=== PATIENT | male | born 1955 | race Hispanic/Latino ===

== ENCOUNTER 2017-12-11 12:34 | Inpatient (IN) | payer OTHER ==
[2017-12-11] MEDS ORDERED: Sodium Chloride 0.9% 1,000 ML IV STA (12:59)
--- NOTE | 2017-12-11 13:00 | ED PDOC ---
HPI: General Adult Time Seen by Provider: 12/11/17 12:56 Chief Complaint (Nursing): Weakness/Neurological Deficit Chief Complaint (Provider): Weakness History Per: Patient History/Exam Limitations: no limitations Onset/Duration Of Symptoms: Days (1 week) Current Symptoms Are (Timing): Still Present Additional Complaint(s): Pt. with weakness all over. 3 days of bloody stool. Went to [facility]. Was told he may have an ulcer. He left as he was waiting for 17hrs without completion of treatment. Pt. has light-headedness. No abd pain, chest pain, headaches, numbness, tingles. No vomiting blood. Past Medical History Reviewed: Nursing Documentation, Vital Signs Vital Signs: Last Vital Signs Temp 97 F L 12/11/17 12:35 Pulse 76 12/11/17 12:35 Resp 16 12/11/17 12:35 BP 104/64 12/11/17 12:35 Pulse Ox 98 12/11/17 15:11 - Medical History PMH: HTN - Family History Family History: States: Unknown Family Hx - Allergies Allergies/Adverse Reactions: Allergies Allergy/AdvReac Type Severity Reaction Status Date / Time No Known Allergies Allergy Verified 12/11/17 12:35 Review of Systems ROS Statement: Except As Marked, All Systems Reviewed And Found Negative Constitutional: Positive for: Weakness Gastrointestinal: Positive for: Melena, Hematochezia Neurological: Positive for: Weakness, Dizziness Physical Exam - Reviewed Nursing Documentation Reviewed: Yes Vital Signs Reviewed: Yes - Physical Exam Appears: Positive for: Uncomfortable Head Exam: Positive for: ATRAUMATIC, NORMAL INSPECTION, NORMOCEPHALIC Skin: Positive for: Normal Color, Warm, DRY Eye Exam: Positive for: EOMI, Normal appearance, PERRL ENT: Positive for: Normal ENT Inspection Neck: Positive for: Normal, Painless ROM, Supple Cardiovascular/Chest: Positive for: Regular Rate, Rhythm Respiratory: Positive for: CNT, Normal Breath Sounds Gastrointestinal/Abdominal: Positive for: Normal Exam, Soft. Negative for: Tenderness Back: Positive for: Normal Inspection. Negative for: L CVA Tenderness, R CVA Tenderness Rectal: Positive for: Rectal Tone Is: (intact), Black Stool Extremity: Positive for: Normal ROM. 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 Negative for: Motor/Sensory Deficits, Aphasia, Facial Droop - Laboratory Results Result Diagrams: 12/11/17 13:22 12/11/17 13:22 Interpretation Of Abn Labs: 6.9 hg - ECG ECG: Positive for: Interpreted By Me, Viewed By Me ECG Rhythm: Positive for: Normal QRS, Normal ST Segment, Sinus Rhythm O2 Sat by Pulse Oximetry: 98 Pulse Ox Interpretation: Normal - Radiology X-Ray: Read By Radiologist X-Ray Interpretation: No Acute Disease - Progress ED Course And Treament: 1300: Stable. Continue fluids. 1453: Stable. AAOx3. Will need transfusion. Spoke with Dr. Rene. Will admit tele and give further orders when pt. reaches floor. GI and pt. PCP Dr. Ardon call back pending. 1509: Spoke with Dr. Cuello for Dr. Palomino. Will consult. Agrees with current care. 1515: Pt. pcp not calling back. Family aware. - Critical Care Total Time (In Min): 30 Documented Critical Care: Time excludes all time spent performint seperately billable procedures Disposition - Clinical Impression Clinical Impression: GI bleed - Patient ED Disposition Is Patient to be Admitted: Yes Counseled Patient/Family Regarding: Studies Performed, Diagnosis - Disposition Disposition Time: 14:00 Condition: FAIR - Pt Status Changed To: Hospital Disposition Of: Inpatient - Admit Certification Admit to Inpatient:: After my assessment, the patient will require hospitalization for at least two midnights. This is because of the severity of symptoms shown, intensity of services needed, and/or the medical risk in this patient being treated as an outpatient. - POA Present On Arrival: None
[2017-12-11 13:36] LABS: BASO # 0.1 K/uL (0.0-0.2); BASO % 0.6 % (0.0-2.0); EOS # 0.3 K/uL (0.0-0.7); EOS % 3.2 % (0.0-4.0); HEMOGLOBIN 6.9 g/dL (12.0-18.0); LYMPH # 1.8 K/uL (1.0-4.3); LYMPH % 17.6 % (20.0-40.0); MEAN CELL VOLUME 94.6 fl (80.0-94.0); MEAN CORPUSCULAR HEMOGLOBIN 34.1 pg (27.0-31.0); MEAN PLATELET VOLUME 9.4 fl (7.2-11.7); MONO # 0.9 K/uL (0.0-0.8); NEUT # 7.1 K/uL (1.8-7.0); NEUT % 69.6 % (50.0-75.0); NRBC % 0.1 % (0.0-0.0); RBC 2.04 Mil/uL (4.40-5.90); WHITE BLOOD COUNT 10.3 K/uL (4.8-10.8)
[2017-12-11 13:48] LABS: BLOOD UREA NITROGEN 16 mg/dl (9-20); GFR AFRICAN-AMERICAN > 60; GFR NON-AFRICAN AMERICAN > 60; PARTIAL THROMBOPLASTIN TIME 24.5 Seconds (25.6-37.1); PROTHROMBIN TIME 11.3 Seconds (9.8-13.1)
[2017-12-11 13:49] LABS: ALB/GLOB RATIO 1.2 (1.0-2.1); ALBUMIN 2.7 g/dL (3.5-5.0); ALT/SGPT 40 U/L (21-72); AST/SGOT 22 U/L (17-59); CALCIUM 8.1 mg/dL (8.4-10.2)
--- NOTE | 2017-12-11 14:01 | RAD ---
HISTORY: weakness COMPARISON: No prior. FINDINGS: LUNGS: No active pulmonary disease. PLEURA: No significant pleural effusion identified, no pneumothorax apparent. CARDIOVASCULAR: Normal. OSSEOUS STRUCTURES: No significant abnormalities. VISUALIZED UPPER ABDOMEN: Normal. OTHER FINDINGS: None. IMPRESSION: No active disease.
--- NOTE | 2017-12-11 14:18 | CT ---
PROCEDURE: CT HEAD WITHOUT CONTRAST. HISTORY: headache COMPARISON: None available. TECHNIQUE: Axial computed tomography images were obtained through the head/brain without intravenous contrast. Radiation dose: Total exam DLP = 788.55 mGy-cm. This CT exam was performed using one or more of the following dose reduction techniques: Automated exposure control, adjustment of the mA and/or kV according to patient size, and/or use of iterative reconstruction technique. FINDINGS: HEMORRHAGE: No intracranial hemorrhage. BRAIN: No mass effect or edema. No atrophy or chronic microvascular ischemic changes. VENTRICLES: Unremarkable. No hydrocephalus. CALVARIUM: Unremarkable. PARANASAL SINUSES: Mild chronic ethmoid sinusitis. MASTOID AIR CELLS: Unremarkable as visualized. No inflammatory changes. OTHER FINDINGS: None. IMPRESSION: No intracranial mass, hemorrhage or evidence of acute infarct. Mild chronic ethmoid sinusitis. Otherwise unremarkable examination.
[2017-12-11] MEDS: Pantoprazole 40 MG in Sodium Chloride 0.9% 100 ML IVPB SCH ×2 (15:00→23:46)
--- NOTE | 2017-12-11 17:36 | CARD ---
APPROVED REPORT EKG Measurement Heart [id number] <Conclusion> Normal sinus rhythm Minimal voltage criteria for LVH, may be normal variant Prolonged QT Abnormal ECG
[2017-12-11] MEDS: Dextrose 5%/0.9% NS 1,000 ML IV SCH (23:45)
[2017-12-12] MEDS: Pantoprazole 40 MG in Sodium Chloride 0.9% 100 ML IVPB SCH ×6 (05:19→22:32)
[2017-12-12 07:00] LABS: HEMOGLOBIN 7.7 g/dL (12.0-18.0); MEAN CELL VOLUME 93.9 fl (80.0-94.0); MEAN CORPUSCULAR HEMOGLOBIN 32.5 pg (27.0-31.0); MEAN CORPUSCULAR HGB CONC 34.6 g/dL (33.0-37.0); RBC 2.39 Mil/uL (4.40-5.90); WHITE BLOOD COUNT 7.5 K/uL (4.8-10.8)
[2017-12-12 07:18] LABS: BLOOD UREA NITROGEN 12 mg/dl (9-20); CALCIUM 7.8 mg/dL (8.4-10.2); GFR AFRICAN-AMERICAN > 60; GFR NON-AFRICAN AMERICAN > 60
--- NOTE | 2017-12-12 11:26 | CP.PCM.CON ---
<Jonn Cuello - Last Filed: 12/12/17 11:27> History of Present Illness - History of Present Illness History of Present Illness: PGY4 Initial GI Consult Kole Cuevas is a 62M w/ hx of HTN who presents to the Er with complaints of weakness and anemia. Pt states that he had been feeling weak for the last 3 days. He concurrently had bright red blood per rectum. He denied any abd pain. Denied any melena, hematemesis or coffee-ground emesis . Pt denies any previous hx of anemia. Denies any weightloss. He had a colonoscopy and endoscopy 4 years ago. He noted no significant finding. He initially went to [facility], but left AMA due to the long wait in the ER. He was started on PPI drip at [facility] ER and given 1 unit of PRBC, which his hgb responded appropriately. PMHx: HTN PSHx: Denies Social Hx: Denies any smoking or illicit drug use, only social drinker Family hx: reviewed, denies any hx of GI malignancy ENdo hx: see above Past Patient History - Past Medical History & Family History Past Medical History?: Yes - Past Social History Smoking Status: Current Some Days Smoker - CARDIAC Hx Cardiac Disorders: No - PULMONARY Hx Respiratory Disorders: No - NEUROLOGICAL Hx Neurological Disorder: No - HEENT Hx HEENT Problems: No - RENAL Hx Chronic Kidney Disease: No - ENDOCRINE/METABOLIC Hx Endocrine Disorders: No - HEMATOLOGICAL/ONCOLOGICAL Hx Blood Disorders: No - INTEGUMENTARY Hx Dermatological Problems: No - MUSCULOSKELETAL/RHEUMATOLOGICAL Hx Musculoskeletal Disorders: No - GASTROINTESTINAL Hx Gastrointestinal Disorders: No Hx Bowel Surgery: No Hx Clostridium Difficile: No Hx Colitis: No Hx Colostomy: No Hx Constipation: No Hx Crohn's Disease: No Hx Diarrhea: No Hx Diverticulitis: Yes Hx Esophageal Varices: No Hx Fatty Liver Disease: No Hx Gall Bladder Disease: No Hx Gastritis: No Hx Gastroesophageal Reflux: No Hx Hemorrhoids: No Hx Ileostomy: No Hx Irritable Bowel: No Hx Liver Failure: No Hx Nausea: No Hx Pancreatitis: No HX Swallowing Problems: No Hx Ulcer: No Hx Vomiting: No - GENITOURINARY/GYNECOLOGICAL Hx Genitourinary Disorders: No - PSYCHIATRIC Hx Psychophysiologic Disorder: No - SURGICAL HISTORY Hx Surgeries: No Hx Abdominal Aortic Aneurysm Repair: No Hx Amputation: No Hx Angiogram: No Hx Angioplasty: No Hx Appendectomy: No Hx Arteriovenous Shunt: No Hx Arthroscopy: No Hx Bile Duct Stent: No Hx Breast Biopsy: No Hx Cataract Extraction: No Hx Cardiac Catheterization: No Hx Carotid Endarterectomy: No Hx Section: No Hx Cholecystectomy: No Hx Coronary Artery Bypass Graft: No Hx Coronary Stent: No Hx Dilation and Curettage: No Hx Eye Surgery: No Hx Femoral-Popliteal Bypass Graft: No Hx Gastric Bypass Surgery: No Hx Herniorrhaphy: No Hx Hysterectomy: No Hx Joint Replacement: No Hx Kidney Transplant: No Hx Liver Transplant: No Hx Mastectomy: No Hx Musculoskeletal Surgery: No Hx Open Heart Surgery: No Hx Open Reduction Internal Fixation: No Hx Orthopedic Surgery: No Hx Parathyroidectomy: No Hx Penile Implant: No Hx Pulmonary Surgery: No Hx Splenectomy: No Hx Thyroidectomy: No Hx Tonsillectomy: No Hx Tubal Ligation: No Hx Valve Replacement: No Hx Vascular Surgery: No Hx Vascular Access Device: No - ANESTHESIA Hx Anesthesia: Yes Hx Anesthesia Reactions: No Hx Malignant Hyperthermia: No Has any member of the family had a problem w/ anesthesia?: No Meds Allergies/Adverse Reactions: Allergies Allergy/AdvReac Type Severity Reaction Status Date / Time No Known Allergies Allergy Verified 12/11/17 12:35 - Medications Medications: Current Medications Amlodipine Besylate (Norvasc) 10 mg PO DAILY [facility] Last Admin: 12/12/17 09:03 Dose: 10 mg Bisacodyl (Dulcolax) 5 mg PO ONCE ONE Stop: 12/12/17 13:01 Pantoprazole Sodium 40 mg/ (Sodium Chloride) 100 mls @ 20 mls/hr IVPB Q5H [facility] PRN Reason: 8 MG/HR Last Admin: 12/12/17 09:08 Dose: 20 mls/hr Dextrose/Sodium Chloride (Dextrose 5%/0.9% Ns 1000 Ml) 1,000 mls @ 80 mls/hr IV .[id number] [facility] Stop: 12/12/17 18:23 Last Admin: 12/11/17 23:45 Dose: 80 mls/hr Polyethylene Glycol/Electrolytes (Golytely) 4,000 ml PO ONCE ONE Stop: 12/12/17 13:01 Physical Exam - Constitutional Appears: Well, No Acute Distress - Head Exam Head Exam: ATRAUMATIC, NORMOCEPHALIC - Eye Exam Eye Exam: Normal appearance - ENT Exam ENT Exam: Mucous Membranes Moist, Normal Exam - Neck Exam Neck exam: Positive for: Normal Inspection - Respiratory Exam Respiratory Exam: Clear to Auscultation Bilateral, NORMAL BREATHING PATTERN. absent: Prolonged Expiratory Phase, Rales, Rhonchi, Wheezes, Respiratory Distress - Cardiovascular Exam Cardiovascular Exam: REGULAR RHYTHM, +S1, +S2 - GI/Abdominal Exam GI & Abdominal Exam: Normal Bowel Sounds, Soft. absent: Diminished Bowel Sounds , Firm, Guarding, Hernia, Organomegaly, Rebound, Rigid - Extremities Exam Extremities exam: Negative for: joint swelling, pedal edema - Neurological Exam Neurological exam: Alert, Oriented x3 - Psychiatric Exam Psychiatric exam: Normal Affect, Normal Mood - Skin Skin Exam: Dry, Intact, Normal Color, Warm Results - Vital Signs Recent Vital Signs: Last Vital Signs Temp 97.7 F 12/12/17 08:03 Pulse 73 12/12/17 09:03 Resp 16 12/12/17 08:03 BP 110/71 12/12/17 09:03 Pulse Ox 97 12/12/17 08:03 - Labs Result Diagrams: 12/12/17 05:45 12/12/17 05:45 Labs: Laboratory Results - last 24 hr 12/11/17 12/11/17 12/11/17 12:51 13:22 13:22 WBC RBC Hgb Hct MCV MCH MCHC RDW Plt Count MPV Neut % (Auto) Lymph % (Auto) [place] % (Auto) Eos % (Auto) Baso % (Auto) Neut # (Auto) Lymph # (Auto) [place] # (Auto) Eos # (Auto) Baso # (Auto) PT INR APTT Sodium 138 Potassium 3.4 L Chloride 105 Carbon Dioxide 23 Anion Gap 13 BUN 16 Creatinine 0.8 Est GFR ( Amer) > 60 Est GFR (Non-Af Amer) > 60 POC Glucose (mg/dL) 184 H Random Glucose 125 H Calcium 8.1 L Total Bilirubin 0.4 AST 22 ALT 40 Alkaline Phosphatase 42 Troponin I 0.0300 Total Protein 5.0 L Albumin 2.7 L Globulin 2.3 Albumin/Globulin Ratio 1.2 Stool Occult Blood Blood Type O POSITIVE Blood Type Confirm Antibody Screen Negative Crossmatch See Detail BBK History Checked No verified bt 12/11/17 12/11/17 12/11/17 13:22 13:22 14:12 WBC 10.3 RBC 2.04 L Hgb 6.9 L Hct 19.3 L MCV 94.6 H MCH 34.1 H MCHC 36.0 RDW 14.0 Plt Count 172 MPV 9.4 Neut % (Auto) 69.6 Lymph % (Auto) 17.6 L [place] % (Auto) 9.0 Eos % (Auto) 3.2 Baso % (Auto) 0.6 Neut # (Auto) 7.1 H Lymph # (Auto) 1.8 [place] # (Auto) 0.9 H Eos # (Auto) 0.3 Baso # (Auto) 0.1 PT 11.3 INR 1.0 APTT 24.5 L Sodium Potassium Chloride Carbon Dioxide Anion Gap BUN Creatinine Est GFR ( Amer) Est GFR (Non-Af Amer) POC Glucose (mg/dL) Random Glucose Calcium Total Bilirubin AST ALT Alkaline Phosphatase Troponin I Total Protein Albumin Globulin Albumin/Globulin Ratio Stool Occult Blood Positive H Blood Type Blood Type Confirm Antibody Screen Crossmatch BBK History Checked 12/11/17 12/12/17 12/12/17 14:17 05:45 05:45 WBC 7.5 RBC 2.39 L Hgb 7.7 L Hct 22.4 L MCV 93.9 MCH 32.5 H MCHC 34.6 RDW 15.0 H Plt Count 150 MPV Neut % (Auto) Lymph % (Auto) [place] % (Auto) Eos % (Auto) Baso % (Auto) Neut # (Auto) Lymph # (Auto) [place] # (Auto) Eos # (Auto) Baso # (Auto) PT INR APTT Sodium 141 Potassium 3.7 Chloride 107 Carbon Dioxide 26 Anion Gap 12 BUN 12 Creatinine 0.7 L Est GFR ( Amer) > 60 Est GFR (Non-Af Amer) > 60 POC Glucose (mg/dL) Random Glucose 97 Calcium 7.8 L Total Bilirubin AST ALT Alkaline Phosphatase Troponin I Total Protein Albumin Globulin Albumin/Globulin Ratio Stool Occult Blood Blood Type Blood Type Confirm O POSITIVE Antibody Screen Crossmatch BBK History Checked Assessment & Plan - Assessment and Plan (Free Text) Assessment: Kole Cuevas is a 62M w/ hx of HTN who presented to the ER w/ complaints of weakness and anemia Anemia Rectal bleeding HTN Plan: -s/p PPI 80mg IV bolus -continue IV Drip -clears for now -npo after midnight -egd and colonscopy tomorrow -maintain 2 large bore IV's -transfuse if hgb < 7 -risk and benefits examined to the pts D/W Dr. Vincent <Reilly Vincent - Last Filed: 12/12/17 19:24> Meds - Medications Medications: Current Medications Amlodipine Besylate (Norvasc) 10 mg PO DAILY [facility] Last Admin: 12/12/17 09:03 Dose: 10 mg Pantoprazole Sodium 40 mg/ (Sodium Chloride) 100 mls @ 20 mls/hr IVPB Q5H [facility] PRN Reason: 8 MG/HR Last Admin: 12/12/17 17:11 Dose: 20 mls/hr Results - Vital Signs Recent Vital Signs: Last Vital Signs Temp 98.1 F 12/12/17 16:09 Pulse 80 12/12/17 16:09 Resp 18 12/12/17 16:09 BP 129/74 12/12/17 16:09 Pulse Ox 97 12/12/17 16:09 - Labs Result Diagrams: 12/12/17 05:45 12/12/17 05:45 Labs: Laboratory Results - last 24 hr 12/11/17 12/11/17 12/12/17 12:51 13:22 05:45 WBC 7.5 RBC 2.39 L Hgb 7.7 L Hct 22.4 L MCV 93.9 MCH 32.5 H MCHC 34.6 RDW 15.0 H Plt Count 150 Sodium Potassium Chloride Carbon Dioxide Anion Gap BUN Creatinine Est GFR ( Amer) Est GFR (Non-Af Amer) POC Glucose (mg/dL) 184 H Random Glucose Calcium Blood Type O POSITIVE Antibody Screen Negative Crossmatch See Detail BBK History Checked No verified bt 12/12/17 05:45 WBC RBC Hgb Hct MCV MCH MCHC RDW Plt Count Sodium 141 Potassium 3.7 Chloride 107 Carbon Dioxide 26 Anion Gap 12 BUN 12 Creatinine 0.7 L Est GFR ( Amer) > 60 Est GFR (Non-Af Amer) > 60 POC Glucose (mg/dL) Random Glucose 97 Calcium 7.8 L Blood Type Antibody Screen Crossmatch BBK History Checked Attending/Attestation - Attestation I have personally seen and examined this patient.: Yes I have fully participated in the care of the patient.: Yes I have reviewed all pertinent clinical information: Yes Notes (Text): 12/12/17 19:24 62 year old male admitted with anemia and rectal bleeding. Recommend EGD/ colonoscopy tomorrow.
[2017-12-12] MEDS: Dextrose 5%/0.9% NS 1,000 ML IV SCH (12:59)
[2017-12-12] MEDS ORDERED: Peg-Electrolyte Oral Soln 4L (Golytely) PO ONE (13:00)
[2017-12-12] MEDS ORDERED: Bisacodyl 5mg EC Tab PO ONE (13:00)
--- NOTE | 2017-12-12 21:50 | CP.PCM.HP ---
Past Patient History - Past Medical History & Family History Past Medical History?: Yes - Past Social History Smoking Status: Current Some Days Smoker - CARDIAC Hx Cardiac Disorders: No - PULMONARY Hx Respiratory Disorders: No - NEUROLOGICAL Hx Neurological Disorder: No - HEENT Hx HEENT Problems: No - RENAL Hx Chronic Kidney Disease: No - ENDOCRINE/METABOLIC Hx Endocrine Disorders: No - HEMATOLOGICAL/ONCOLOGICAL Hx Blood Disorders: No - INTEGUMENTARY Hx Dermatological Problems: No - MUSCULOSKELETAL/RHEUMATOLOGICAL Hx Musculoskeletal Disorders: No - GASTROINTESTINAL Hx Gastrointestinal Disorders: No Hx Bowel Surgery: No Hx Clostridium Difficile: No Hx Colitis: No Hx Colostomy: No Hx Constipation: No Hx Crohn's Disease: No Hx Diarrhea: No Hx Diverticulitis: Yes Hx Esophageal Varices: No Hx Fatty Liver Disease: No Hx Gall Bladder Disease: No Hx Gastritis: No Hx Gastroesophageal Reflux: No Hx Hemorrhoids: No Hx Ileostomy: No Hx Irritable Bowel: No Hx Liver Failure: No Hx Nausea: No Hx Pancreatitis: No HX Swallowing Problems: No Hx Ulcer: No Hx Vomiting: No - GENITOURINARY/GYNECOLOGICAL Hx Genitourinary Disorders: No - PSYCHIATRIC Hx Psychophysiologic Disorder: No - SURGICAL HISTORY Hx Surgeries: No Hx Abdominal Aortic Aneurysm Repair: No Hx Amputation: No Hx Angiogram: No Hx Angioplasty: No Hx Appendectomy: No Hx Arteriovenous Shunt: No Hx Arthroscopy: No Hx Bile Duct Stent: No Hx Breast Biopsy: No Hx Cataract Extraction: No Hx Cardiac Catheterization: No Hx Carotid Endarterectomy: No Hx Section: No Hx Cholecystectomy: No Hx Coronary Artery Bypass Graft: No Hx Coronary Stent: No Hx Dilation and Curettage: No Hx Eye Surgery: No Hx Femoral-Popliteal Bypass Graft: No Hx Gastric Bypass Surgery: No Hx Herniorrhaphy: No Hx Hysterectomy: No Hx Joint Replacement: No Hx Kidney Transplant: No Hx Liver Transplant: No Hx Mastectomy: No Hx Musculoskeletal Surgery: No Hx Open Heart Surgery: No Hx Open Reduction Internal Fixation: No Hx Orthopedic Surgery: No Hx Parathyroidectomy: No Hx Penile Implant: No Hx Pulmonary Surgery: No Hx Splenectomy: No Hx Thyroidectomy: No Hx Tonsillectomy: No Hx Tubal Ligation: No Hx Valve Replacement: No Hx Vascular Surgery: No Hx Vascular Access Device: No - ANESTHESIA Hx Anesthesia: Yes Hx Anesthesia Reactions: No Hx Malignant Hyperthermia: No Has any member of the family had a problem w/ anesthesia?: No Meds Allergies/Adverse Reactions: Allergies Allergy/AdvReac Type Severity Reaction Status Date / Time No Known Allergies Allergy Verified 12/11/17 12:35 Results - Vital Signs Recent Vital Signs: Last Vital Signs Temp 97.6 F 12/12/17 19:54 Pulse 74 12/12/17 19:54 Resp 18 12/12/17 19:54 BP 119/76 12/12/17 19:54 Pulse Ox 97 12/12/17 19:54 - Labs Result Diagrams: 12/12/17 05:45 12/12/17 05:45 Labs: Laboratory Results - last 24 hr 12/11/17 12/11/17 12/12/17 12:51 13:22 05:45 WBC 7.5 RBC 2.39 L Hgb 7.7 L Hct 22.4 L MCV 93.9 MCH 32.5 H MCHC 34.6 RDW 15.0 H Plt Count 150 Sodium Potassium Chloride Carbon Dioxide Anion Gap BUN Creatinine Est GFR ( Amer) Est GFR (Non-Af Amer) POC Glucose (mg/dL) 184 H Random Glucose Calcium Blood Type O POSITIVE Antibody Screen Negative Crossmatch See Detail BBK History Checked No verified bt 12/12/17 05:45 WBC RBC Hgb Hct MCV MCH MCHC RDW Plt Count Sodium 141 Potassium 3.7 Chloride 107 Carbon Dioxide 26 Anion Gap 12 BUN 12 Creatinine 0.7 L Est GFR ( Amer) > 60 Est GFR (Non-Af Amer) > 60 POC Glucose (mg/dL) Random Glucose 97 Calcium 7.8 L Blood Type Antibody Screen Crossmatch BBK History Checked
[2017-12-13] MEDS: Pantoprazole 40 MG in Sodium Chloride 0.9% 100 ML IVPB SCH ×2 (04:52→07:02)
[2017-12-13] MEDS ORDERED: EPINEPHrine 1 mg/ml (1:1000) Inj ONE (07:52)
[2017-12-13] MEDS ORDERED: Sodium Chloride 0.9% 250 ML IV ONE (08:15)
[2017-12-13] MEDS ORDERED: Propofol 10 mg/ml Inj (20 ML) ONE (08:39)
[2017-12-13 09:56] LABS: BASO % 0.5 % (0.0-2.0); EOS # 0.3 K/uL (0.0-0.7); EOS % 4.8 % (0.0-4.0); HEMOGLOBIN 9.4 g/dL (12.0-18.0); LYMPH # 1.1 K/uL (1.0-4.3); MEAN CELL VOLUME 92.7 fl (80.0-94.0); MEAN CORPUSCULAR HEMOGLOBIN 32.2 pg (27.0-31.0); MEAN CORPUSCULAR HGB CONC 34.8 g/dL (33.0-37.0); MONO # 0.5 K/uL (0.0-0.8); MONO % 8.8 % (0.0-10.0); NEUT # 3.8 K/uL (1.8-7.0); NEUT % 66.9 % (50.0-75.0); NRBC % 0.1 % (0.0-0.0); RBC 2.91 Mil/uL (4.40-5.90); RED CELL DISTRIBUTION WIDTH 15.8 % (11.5-14.5); WHITE BLOOD COUNT 5.6 K/uL (4.8-10.8)
[2017-12-13 10:06] LABS: ALB/GLOB RATIO 1.1 (1.0-2.1); ALBUMIN 2.6 g/dL (3.5-5.0); ALT/SGPT 43 U/L (21-72); AST/SGOT 20 U/L (17-59); BLOOD UREA NITROGEN 5 mg/dl (9-20); GFR AFRICAN-AMERICAN > 60; GFR NON-AFRICAN AMERICAN > 60
[2017-12-14 00:10] VITALS: RESP 18
[2017-12-14 04:47] VITALS: O2SAT 97
[2017-12-14 05:39] LABS: HEMOGLOBIN 9.1 g/dL (12.0-18.0); MEAN CELL VOLUME 93.9 fl (80.0-94.0); MEAN CORPUSCULAR HEMOGLOBIN 32.9 pg (27.0-31.0); RBC 2.77 Mil/uL (4.40-5.90); RED CELL DISTRIBUTION WIDTH 16.2 % (11.5-14.5); WHITE BLOOD COUNT 6.4 K/uL (4.8-10.8)
--- NOTE | 2017-12-14 07:36 | CP.PCM.PN ---
<Allan Lara - Last Filed: 12/14/17 14:16> Subjective - Date & Time of Evaluation Date of Evaluation: 12/14/17 Time of Evaluation: 07:00 - Subjective Subjective: PGY5 GI Fellow Progress Note Patient seen and examined bedside this morning. The patient states that he is feeling much better today. Today, admits to recent EtOH abuse and drug use due to social issues he is dealing with. He has been ambulating and does not feel dizzy/lightheaded. Denies any rectal bleeding, nausea, vomiting, abdominal pain. Eager to be discharged. 12 system ROS performed and negative except where stated. Objective - Vital Signs/Intake and Output Vital Signs (last 24 hours): Temp Pulse Resp BP Pulse Ox 98.0 F 76 18 144/84 97 12/14/17 04:47 12/14/17 04:47 12/14/17 04:47 12/14/17 04:47 12/14/17 04:47 - Medications Medications: Current Medications Amlodipine Besylate (Norvasc) 10 mg PO DAILY [facility] Last Admin: 12/13/17 12:57 Dose: 10 mg Pantoprazole Sodium (Protonix Inj) 40 mg IVP Q12 [facility] Last Admin: 12/13/17 21:53 Dose: 40 mg - Labs Labs: 12/14/17 04:20 12/13/17 09:15 PT 11.3 Seconds (9.8-13.1) 12/11/17 13:22 INR 1.0 (0.9-1.2) 12/11/17 13:22 APTT 24.5 Seconds (25.6-37.1) L 12/11/17 13:22 - Constitutional Appears: Non-toxic, No Acute Distress - Eye Exam Eye Exam: EOMI, PERRL - ENT Exam ENT Exam: Mucous Membranes Moist - Respiratory Exam Respiratory Exam: Clear to Ausculation Bilateral. absent: Rales, Rhonchi, Wheezes - Cardiovascular Exam Cardiovascular Exam: RRR, +S1, +S2 - GI/Abdominal Exam GI & Abdominal Exam: Soft, Normal Bowel Sounds. absent: Distended, Firm, Guarding, Rigid, Tenderness, Organomegaly - Extremities Exam Extremities Exam: Normal Inspection. absent: Pedal Edema - Neurological Exam Neurological Exam: Alert, Awake, Oriented x3 - Psychiatric Exam Psychiatric exam: Normal Affect, Normal Mood - Skin Skin Exam: Dry, Warm Assessment and Plan - Assessment and Plan (Free Text) Assessment: Patient is a 62yo male with PMHx significant for HTN who presented with weakness and anemia -Acute blood loss anemia -PUD -Diverticulosis Plan: -HGB stable today -Continue PPI with omeprazole 40mg PO BID on discharge -Diet as tolerated -OK for D/C from GI standpoint -May benefit from follow up EGD to check healing <Oscar Palomino - Last Filed: 12/14/17 14:31> Objective - Vital Signs/Intake and Output Vital Signs (last 24 hours): Temp Pulse Resp BP Pulse Ox 98.3 F 72 18 131/82 97 12/14/17 07:40 12/14/17 08:43 12/14/17 07:40 12/14/17 08:43 12/14/17 07:40 Intake and Output: 12/14/17 12/14/17 06:59 18:59 Intake Total 360 Output Total 200 Balance 160 - Labs Labs: 12/14/17 04:20 12/13/17 09:15 PT 11.3 Seconds (9.8-13.1) 12/11/17 13:22 INR 1.0 (0.9-1.2) 12/11/17 13:22 APTT 24.5 Seconds (25.6-37.1) L 12/11/17 13:22 Attending/Attestation - Attestation I have personally seen and examined this patient.: Yes I have fully participated in the care of the patient.: Yes I have reviewed all pertinent clinical information, including history, physical exam and plan: Yes Notes (Text): 12/14/17 14:30 This is a 62 yo male with PMHx significant for HTN who presented with weakness and anemia s/p EGD and colonoscopy. See chart for full details. Had duodenal and gastric ulcerations. Continue PPI bid with outpatient follow up EGD in 3 months for healing
[2017-12-14 07:41] VITALS: BP 131/82; PULSE 72; TEMP 98.3
--- NOTE | 2017-12-15 02:51 | CP.PCM.PN ---
Subjective - Date & Time of Evaluation Date of Evaluation: 12/14/17 Objective - Vital Signs/Intake and Output Vital Signs (last 24 hours): Temp Pulse Resp BP Pulse Ox 98.3 F 72 18 131/82 97 12/14/17 07:40 12/14/17 08:43 12/14/17 07:40 12/14/17 08:43 12/14/17 07:40 Intake and Output: 12/14/17 12/15/17 18:59 06:59 Intake Total 360 Output Total 200 Balance 160 - Labs Labs: 12/14/17 04:20 12/13/17 09:15 PT 11.3 Seconds (9.8-13.1) 12/11/17 13:22 INR 1.0 (0.9-1.2) 12/11/17 13:22 APTT 24.5 Seconds (25.6-37.1) L 12/11/17 13:22
== END 2017-12-14 09:45 | disposition home or self-care (01) | DRG 378 ==
LOC: H.ER 12:34 → H.ERHOLD 14:52 → H.TEL 16:53
PROVIDERS: ADMIT Internal Medicine; ATTEND Internal Medicine
PROC: 30233N1 Transfusion of Nonautologous Red Blood Cells into Peripheral Vein, Percutaneous Approach (ICD-10-PCS; 2017-12-11)
PROC: 0DB68ZX Excision of Stomach, Via Natural or Artificial Opening Endoscopic, Diagnostic (ICD-10-PCS; 2017-12-13)
PROC: 0DB58ZX Excision of Esophagus, Via Natural or Artificial Opening Endoscopic, Diagnostic (ICD-10-PCS; 2017-12-13)
PROC: 0DJD8ZZ Inspection of Lower Intestinal Tract, Via Natural or Artificial Opening Endoscopic (ICD-10-PCS; principal; 2017-12-13 08:00)
PROC: 0DB98ZX Excision of Duodenum, Via Natural or Artificial Opening Endoscopic, Diagnostic (ICD-10-PCS; 2017-12-13 08:00)
DX: K62.5 Hemorrhage of anus and rectum (principal); D62 Acute posthemorrhagic anemia; K25.9 Gastric ulcer, unspecified as acute or chronic, without hemorrhage or perforation; K44.9 Diaphragmatic hernia without obstruction or gangrene; F17.200 Nicotine dependence, unspecified, uncomplicated; I10 Essential (primary) hypertension; K20.9 Esophagitis, unspecified; K26.9 Duodenal ulcer, unspecified as acute or chronic, without hemorrhage or perforation; K29.70 Gastritis, unspecified, without bleeding; K57.30 Diverticulosis of large intestine without perforation or abscess without bleeding; K64.0 First degree hemorrhoids